=== PATIENT | male | born 1960 | race Caucasian/White ===

== ENCOUNTER 2018-03-06 09:00 | Outpatient (CLI) | payer MEDICARE ==
[~2018-03-06] VITALS: Ht 180.3 cm; Wt 127.0 kg
[2018-03-06] MEDS ORDERED: lipitor PO (09:22)
[2018-03-06] MEDS ORDERED: MULTIVITAMINS1 EAC2 ORAL (09:22)
[2018-03-06] MEDS ORDERED: VIT B COMPLEX PO (09:23)
[2018-03-06] MEDS ORDERED: zoloft PO (09:33)
[2018-03-06 09:37] VITALS: BP 113/79
== END 2018-03-06 11:00 | disposition home or self-care (01) ==
LOC: RAD 09:00
DX: M51.16 Intervertebral disc disorders with radiculopathy, lumbar region (principal)